=== PATIENT | female | born 1955 | race Asian ===

== ENCOUNTER 2024-07-08 13:39 | Emergency (ER) | payer MEDICARE ==
[~2024-07-08] VITALS: Ht 157.5 cm; Wt 59.1 kg
[2024-07-08 13:46] VITALS: BP 100/67; PULSE 87; TEMP 98.4
== END 2024-07-08 18:03 | disposition home or self-care (01) ==
LOC: COL.ER 13:39
DX: H69.92 Unspecified Eustachian tube disorder, left ear (principal)